=== PATIENT | female | born 1980 | race Caucasian/White ===

== ENCOUNTER → 2017-12-13 | Outpatient (CLI) | payer BC, MEDICARE ==
--- NOTE | 2017-12-14 13:57 | MR ---
MRI CERVICAL SPINE and brain: CLINICAL HISTORY: TECHNIQUE: Multiplanar, multisequence imaging of the cervical spine and brain is performed without co ntrast. COMPARISON: FINDINGS: Cervical spine: Sagittal images of the cervical spine show the craniocervical junction to appear with in normal limits. The cervical and upper thoracic spinal cord is normal in course, caliber, and sign al. Vertebral alignment is anatomic. The vertebral body and intravertebral disk heights are normal. The bone marrow signal intensity is within normal limits. Axial images show there is no significant focal disk disease, spinal canal stenosis, or spinal cord c ompromise at any cervical level. Minimal lateral extension of endplate disc complex C3-4, C4-5, C5-6 encroaching only minimally on the foramina. IMPRESSION: Mild foraminal encroachment. No sizable disc herniation or significant central canal renea nosis. Brain MRI: Corpus callosum, pituitary, cervical medullary junction, cerebellopontine angles are gideon l. There are normal vascular flow voids. No restricted diffusion. Scattered T2 hyperintensities are present in the periventricular, subcortical, juxtacortical and deep white matter. There are approximately 30-40 lesions present. The largest in the right frontal deep w chica matter on axial image 14 measures 5 to 6 mm. 7 mm periventricular lesion is noted on axial image 18 on the right and 7 mm lesion in the periventricular white matter on the left also measures 7 mm. Left frontal hyperintensity measures 8 mm on axial image 21 in the centrum semiovale ovale. No hemorr giovanna or hydrocephalus. The orbits are symmetric. Paranasal sinuses and mastoid air cells are well aerated. IMPRESSION: White matter demyelination changes as described, correlate for possible multiple sclerosi s.
== END | disposition home or self-care (01) ==
LOC: RADMRIMAIN 21:19
PROVIDERS: ATTEND Psychiatry & Neurology Pain Medicine
DX: G37.9 Demyelinating disease of central nervous system, unspecified (principal); M54.2 Cervicalgia
CPT/HCPCS: 70551; 72141

== ENCOUNTER → 2017-12-28 | Outpatient (CLI) | payer MEDICARE, BC ==
[2017-12-30 11:53] LABS: IgG - CSF 2.1 mg/dL (0.0 - 3.4); IgG/Albumin Index (CSF) 0.46 (0.00 - 0.77)
== END | disposition home or self-care (01) ==
LOC: LABWHC1 08:32
PROVIDERS: ATTEND Psychiatry & Neurology Pain Medicine
DX: R90.82 White matter disease, unspecified (principal)
CPT/HCPCS: 36415; 82040; 82042; 82784; 83916

== ENCOUNTER → 2018-11-15 | Outpatient (CLI) | payer MEDICARE ==
--- NOTE | 2018-11-15 14:15 | MM ---
Reason for exam: clinical finding. Last mammogram was performed 1 year and 10 months ago. History: Patient has history of endometrial cancer at age 21. Indicated problem(s): non-bloody discharge in both breasts. Physical Findings: Nurse did not find any significant physical abnormalities on exam. MG 3D Diag Mammo W/Cad JOHN Bilateral CC and MLO view(s) were taken. Prior study comparison: January 13, 2017, mammogram. July 24, 2014, mammogram. The breast tissue is heterogeneously dense. This may lower the sensitivity of mammography. There is no discrete abnormality. These results were verbally communicated with the patient and result sheet given to the patient on 11/15/18. ASSESSMENT: Negative, BI-RAD 1 RECOMMENDATION: Routine screening mammogram of both breasts. Manage on a clinical basis with regard to bilateral nipple discharge x 3 years.
== END | disposition home or self-care (01) ==
LOC: RADMAMWWP 13:27
PROVIDERS: ATTEND Family Medicine
DX: R92.8 Other abnormal and inconclusive findings on diagnostic imaging of breast (principal)
CPT/HCPCS: 77066; G0279; 77062

== ENCOUNTER → 2019-03-19 | Outpatient (CLI) | payer BC, MEDICARE ==
--- NOTE | 2019-03-19 21:23 | MR ---
EXAMINATION TYPE: MR brain wo/w con DATE OF EXAM: 03/19/2019 COMPARISON: 12/13/2017 HISTORY: Weakness, MS follow up, compare to prior 12-13-17 CONTRAST: Performed utilizing 7.5 mL intravenous Gadavist gadolinium contrast. TECHNIQUE: Multiplanar, multisequence imaging of the brain is performed on a 3.0 Marnie magnet. Demye linating disease protocol with additional Sagittal Flair sequence is performed. Study is performed wi thin 24 hours of arrival to the hospital. FINDINGS: T2 White Matter Lesions Present : Yes Approximate Number of Lesions: Multiple scattered Locations Identified : Some white matter changes in the right paola. Scattered subcortical and deep wh ite matter changes are present bilaterally. Size of Largest Lesion(s): 1. 0.5 x 0.5 x 0.9 cm cm. Location: Right subcortical parietal lobe white matter Sequence 601 Image 19 (axial) and Sequence 701 Image 26 (sagittal). 2. 0.6 x 0.4 x 1.0 cm cm. Location: Left centrum semiovale Sequence 601 Image 21 (axial) and Sequen ce 701 Image 13 (sagittal). This has enlarged from comparison. Enhancing Lesion(s) Present: No Change from Prior: Stable Diffusion-weighted imaging is performed. No abnormal hyperintensity is present to suggest an acute i ntracranial infarct or acute ischemic change. Ventricles and sulci are appropriate for the patient age. There are no abnormal extra-axial fluid collections. The ventricular system and cisternal spaces are normal in size and appearance. The brain volume is age appropriate. The craniocervical junction abdulaziz ears within normal limits. The dural venous sinuses appear patent. No abnormal enhancement is present on post contrast images. . The visualized sinuses are clear. Visu alized orbits are unremarkable. IMPRESSION: 1. Stable multiple bilateral deep white matter signal changes can be compatible with multiple sclero sis in the proper clinical setting.
== END | disposition home or self-care (01) ==
LOC: RADMRIMAIN 18:46
PROVIDERS: ATTEND Psychiatry & Neurology Pain Medicine
DX: R90.89 Other abnormal findings on diagnostic imaging of central nervous system (principal)
CPT/HCPCS: 70553; A9585

== ENCOUNTER → 2019-05-29 | Outpatient (CLI) | payer BC, MEDICARE ==
[2019-05-30 00:16] LABS: Total Protein,CSF 38 mg/dL (12-60)
[2019-05-30 02:56] LABS: Appearance,CSF Clear
[2019-05-30 02:57] LABS: CSF Tube Number 4; Nucleated Cells, CSF 1 u/L (0-5); Red Blood Cell,CSF 3 u/L (0-10)
== END | disposition home or self-care (01) ==
LOC: LABWHC1 08:52
PROVIDERS: ATTEND Psychiatry & Neurology Pain Medicine
DX: R51 Headache (principal); R90.82 White matter disease, unspecified
CPT/HCPCS: 36415; 82040; 82042; 82784; 83873; 83916; 84157; 87801; 89050

== ENCOUNTER → 2020-07-04 | Outpatient (CLI) | payer BC, MEDICARE ==
--- NOTE | 2020-07-04 12:34 | MM ---
Reason for exam: additional evaluation requested from prior study. Last mammogram was performed 1 year and 8 months ago. History: Patient has history of endometrial cancer at age 21 and is nulliparous. Physical Findings: Nurse Summary: 0.5cm nodule in the left breast at 7-8 o'clock (nurse db). MG Diagnostic Mammo w CAD JOHN Bilateral CC and MLO view(s) were taken. Prior study comparison: November 15, 2018, bilateral MG 3d diag mammo w/cad JOHN. January 13, 2017, mammogram. The breast tissue is heterogeneously dense. This may lower the sensitivity of mammography. Area of concern posterior right upper outer quadrant and nurse palpated area left 7-8 o'clock position. No significant new findings when compared with previous films. These results were verbally communicated with the patient and result sheet given to the patient on 07/04/20. ASSESSMENT: Incomplete: need additional imaging evaluation, BI-RAD 0 RECOMMENDATION: Ultrasound of both breasts.
--- NOTE | 2020-07-04 12:36 | USB ---
Reason for exam: additional evaluation requested from abnormal screening. History: Patient has history of endometrial cancer at age 21 and is nulliparous. US Breast Limited BILAT Right limited breast ultrasound including focal area of concern, retroareolar and axilla demonstrates no cystic or solid lesion seen. Left limited breast ultrasound including focal area of concern, retroareolar and axilla demonstrates no cystic or solid lesion seen. Scanned right 9-12 o'clock area of pain and scanned left 6-9 o'clock nurse palpated. These results were verbally communicated with the patient and result sheet given to the patient on 07/04/20. ASSESSMENT: Benign, BI-RAD 2 RECOMMENDATION: Routine screening mammogram of both breasts in 1 year. Manage on a clinical basis with regard to right breast pain and any suspicious palpable areas.
== END | disposition home or self-care (01) ==
LOC: RADMAMWWP 11:03
PROVIDERS: ATTEND Family Medicine
DX: N64.4 Mastodynia (principal); R92.8 Other abnormal and inconclusive findings on diagnostic imaging of breast
CPT/HCPCS: 77066

== ENCOUNTER → 2020-07-25 | Outpatient (CLI) | payer BC, MEDICARE ==
--- NOTE | 2020-07-26 00:58 | MR ---
EXAMINATION TYPE: MR brain wo/w con DATE OF EXAM: 07/25/2020 COMPARISON: HISTORY: Possible MS CONTRAST: Standard multiplanar, multisequence MRI departmental protocol utilizing 7.5 mL intravenous Gadavist g adolinium contrast. Ventricles and sulci appear normal. There is no mass effect nor midline shift. There is no sign of in tracranial hemorrhage. Diffusion images show no evidence of an acute infarct. The T2 and FLAIR images show multiple foci of signal in the white matter in both cerebral hemispheres. This is more noticeab le in the parietal lobes. The largest measures 10 mm in the left parietal lobe. Total number of lesio ns is approximately 25. The brainstem is intact. Cerebellum is intact. Sella turcica appears normal. The globes are symmetric . The contrast images show no pathologic enhancement. There is normal enhancement of the venous sinus es. IMPRESSION: Numerous nonenhancing white matter lesions as above would be consistent with demyelinating disease. T hese appear not significantly different than previous exam.
== END | disposition home or self-care (01) ==
LOC: RADMRIMAIN 18:19
PROVIDERS: ATTEND Psychiatry & Neurology Neurology
DX: R90.82 White matter disease, unspecified (principal)
CPT/HCPCS: 70553; A9585

== ENCOUNTER → 2020-10-27 | Outpatient (CLI) | payer BC, MEDICARE ==
[2020-10-29 11:53] LABS: IgG/Albumin Index (CSF) 0.54 (0.00 - 0.77)
== END | disposition home or self-care (01) ==
LOC: LABWHC1 10:57
PROVIDERS: ATTEND Psychiatry & Neurology Pain Medicine
DX: R90.82 White matter disease, unspecified (principal)
CPT/HCPCS: 36415; 82040; 82042; 82784; 83916

== ENCOUNTER → 2020-11-19 | Outpatient (CLI) | payer BC, MEDICARE ==
[2020-11-21 13:52] LABS: Histone Antibody 0.3 UNITS (<1.0)
[2020-11-21 20:31] LABS: Anti-Smith Ab Interp NEGATIVE (NEGATIVE); Cyclic Citrull Pep IgG Unit 0.5 U/mL; Cyclic Citrullinated Pep IgG NEGATIVE (NEGATIVE); DNA Double-Stranded Indetermin (NEGATIVE); JO-1 IgG Antibody <0.2 AI; Scleroderma SC-70 Ab <0.2 AI
== END | disposition home or self-care (01) ==
LOC: LABWHC1 16:04
PROVIDERS: ATTEND Psychiatry & Neurology Pain Medicine
DX: M25.50 Pain in unspecified joint (principal)
CPT/HCPCS: 36415; 83516; 86038; 86200; 86225; 86235

== ENCOUNTER → 2021-02-05 | Outpatient (CLI) | payer MEDICARE ==
--- NOTE | 2021-02-05 13:18 | US ---
EXAMINATION TYPE: US thyroid st tissue head/neck DATE OF EXAM: 02/05/2021 COMPARISON: NONE CLINICAL HISTORY: E04.1 Thyroid nodule. GLAND SIZE: Right Lobe: 5.7x1.9x1.7 cm Overall Parenchyma: homogenous Left Lobe: 5.5x2.2x1.9 cm Overall Parenchyma: homogeneous Isthmus Thickness: 0.3 cm NODULES RIGHT: # of nodules measured on right: 2 1. 1.2 X 0.6 x 0.7 cm, upper mid, cystic or almost completely cystic, anechoic nodule, which is wid er than tall, with smooth margins, echogenic foci a part of a colloid cyst. 2. 0.5 X 0.4 x 0.6 cm, upper mid, spongiform, isoechoic nodule, which is wider than tall, with smoo th margins, without echogenic foci. LEFT: # of nodules measured on left: 3 1. 2.3 X 1.2 x 1.5 cm, mid mid, mixed cystic and solid, hypoechoic nodule, which is wider than tall , with smooth margins, without echogenic foci. 2. 1.0 X 0.7 x 1.1 cm, lower mid, cystic or almost completely cystic, anechoic nodule, which is wi lori than tall, with smooth margins, echogenic foci a part of a colloid nodule. 3. 0.6 X 0.4 x 0.4 cm, mid mid, cystic or almost completely cystic, anechoic nodule, which is , wit h smooth margins, without echogenic foci. ISTHMUS: # of nodules measured in the isthmus: 0 Bilateral neck scanned, no evidence of lymphadenopathy. Findings consistent with multinodular goiter. Dominant 2.3 cm left thyroid nodule with slightly hypoe choic solid component. IMPRESSION: TR 3 lesion mildly suspicious. Annual ultrasound surveillance advised. 2017 ACR TI-RADS LEVEL: TR-RADS 3 - Mildly Suspicious: Follow if > 1.5 cm, FNA if > 2.5 cm *Highest TI-RADS level nodule reported
[2021-02-05 14:53] LABS: T4, Free (Free Thyroxine) 0.98 ng/dL (0.78-2.19)
== END | disposition home or self-care (01) ==
LOC: RADUSWWP 12:15
PROVIDERS: ATTEND Otolaryngology
DX: E04.2 Nontoxic multinodular goiter (principal)
CPT/HCPCS: 76536; 84439; 84443

== ENCOUNTER 2021-03-12 07:28 | Day surgery (SDC) | payer MEDICARE ==
[2021-03-10 13:33] VITALS: BMI 27.0
[~2021-03-12 07:28] MED LIST: FAMOTIDINE 20 MG/2 ML VIAL IV PRN; LACTATED RINGERS 1,000 ML IV SCH; LIDOCAINE 1% (10MG/ML) FOR IV START INTRADERMA PRN; MELOXICAM 7.5 MG TAB PO PRN; ONDANSETRON 4 MG/2 ML VIAL IVP PRN; Pre Op ABX Message 1 EACH MISC MISCELLANE ONE
[2021-03-12] MEDS ORDERED: KETOROLAC 15 MG/ML 1 ML VIAL ONE (08:18)
[2021-03-12] MEDS ORDERED: fentaNYL (PF) 50 MCG/ML 2 ML AMP ONE (08:18)
[2021-03-12] MEDS ORDERED: LIDOCAINE 1% INJ 10MG/ML (20 ML MDV) ONE (08:18)
[2021-03-12] MEDS ORDERED: HYDROmorphone (PF) 1 MG/ML ONE (08:18)
[2021-03-12] MEDS ORDERED: PROPOFOL 10 MG/ML 20 ML VIAL IV ONE (08:18)
[2021-03-12] MEDS ORDERED: MIDAZOLAM 2 MG/2 ML VIAL ONE (08:18)
[2021-03-12] MEDS ORDERED: SUCCINYLCHOLINE CHLORIDE 100 MG/5 ML SYR IV ONE (08:18)
[2021-03-12] MEDS ORDERED: DEXAMETHASONE SOD PHOSPHATE 10 MG/ML 1 ML VIAL ONE (08:18)
[2021-03-12] MEDS ORDERED: SODIUM CHLORIDE 0.9% 100 ML with ceFAZolin 2,000 MG IV ONE ×2 (08:22)
[2021-03-12] MEDS ORDERED: LIDOCAINE 1%-EPI 1:100,000 20 ML VIAL SQ ONE ×2 (08:41)
[2021-03-12] MEDS ORDERED: OXYMETAZOLINE 0.05% NASL SPRAY 1 SPRAY BOTTLE MISCELLANE ONE (08:41)
[2021-03-12] MEDS ORDERED: BUPIVACAINE (PF) 0.5% 30 ML VIAL SQ ONE (08:41)
[2021-03-12] MEDS ORDERED: BACITRACIN ZINC 500 UNIT/GM OINT 28.4 GM TUBE TOPICAL ONE (08:50)
[2021-03-12] MEDS ORDERED: LACTATED RINGERS 1,000 ML IV ONE (09:32)
[2021-03-12 09:44] VITALS: TEMP 97
[2021-03-12] MEDS: HYDROmorphone 0.5 MG/0.5 ML SYRINGE IVP PRN ×2 (09:52→09:58)
--- NOTE | 2021-03-12 09:57 | P.OP ---
Date of Procedure: 03/12/21 Preoperative Diagnosis: Deviated nasal septum Bilateral hypertrophy of the inferior nasal turbinates with obstruction Adenoid hypertrophy with obstruction Postoperative Diagnosis: Same Procedure(s) Performed: Septoplasty Bilateral submucosal resection of the inferior nasal turbinates with outfracturing compression Adenoidectomy by electrofulguration Anesthesia: ROCK Surgeon: Leonel Grimes Estimated Blood Loss (ml): 5 Pathology: other (Septum) Condition: stable Disposition: PACU Indications for Procedure: Patient has persistent nasal obstruction and is a chronic mouth breather for many years. Has tried Flonase nasal spray and other forms of treatment with no improvement. She was found have a severe deviated nasal septum and large obstructive inferior turbinates and endoscopy did reveal large obstructive adenoids. After long discussion on a trial of multiple nasal sprays and medications she wished to proceed forward with this septoplasty, turbinate surgery and adenoidectomy. All risks, benefits, and alternative therapies were discussed in detail. Consent was obtained and all questions were answered. Operative Findings: Patient had massive adenoids with a severe deviated nasal septum to the left anteriorly into the right posteriorly. Inferior turbinates were massively enlarged and edematous. Description of Procedure: This patient was taken to the operative room and placed in the supine position. A general inhalation anesthetic was administered to the patient by the department of anesthesia with a functioning IV line in place. The patient was monitored throughout the entire case by the department of anesthesia. The eyes were taped shut for protection. The patient was placed in a slight reverse Trendelenburg position. The patient had previously utilize Afrin nasal spray preoperatively. The nose was evaluated and the septum lateral nasal wall and inferior turbinates were injected with lidocaine 1% with epinephrine 1 100,000 bilaterally. Approximately 10 minutes were allowed wait for full vasoconstrictive effects to take place. At this point a caudal incision was made over the caudal portion of the left septum down to the mucoperichondrium. A mucoperichondrial flap was elevated on the left side and dissection was carried with use of tunnels posteriorly. We then made a crossover incision through the cartilage to the contralateral side and for the mucoperichondrial flap development was performed to the extent of visualization on the contralateral side. After the cartilage was freed with use of several crosshatching incisions and removal of some redundant strips of s eptal cartilage, the septum was straightened and placed back in the midline. The septum was sutured fixated to the vomerian groove. Excellent straightening occurred and the septum was visibly straight. Incision was closed with a 40 rapid Vicryl. We utilized a running nonlocking fashion for closure of the incision. A quilting stitch was used to reapproximate the septal flaps with use of a 40 rapid Vicryl. Intranasal splints were inserted and fixated at the end of the case. We utilized Calvin nasal splints. They will be removed and the patient returns to the office. Attention was then paid to the inferior turbinates. The bilateral inferior turbinates were hypertrophic and obstructive. We entered the anterior portion of the inferior turbinates with use of a microdebrider. We remove bone and submucosal elements with use of a microdebrider bilaterally. The inferior turbinates underwent a submucosal resection with removal of submucosal tissue and bone. We obtained a much better and normal in size for breathing. The inferior turbinates were then outfractured and compressed with a [employer] nasal elevator. Excellent airway was obtained and was symmetric bilaterally. No bleeding was encountered. A McIvor mouth gag was placed into the patient's mouth with care to avoid any trauma to the lips teeth gums and tongue. The patient's dental care was extremely poor and she exhibited remnant teeth with a tremendous amount of periodontal disease. The nasopharynx was visualized and a red rubber catheter was placed into the nose and out the mouth and used to retract the soft palate. With use of indirect mirror examination and the Coblation hand wand, the adenoid tissue was removed in that fashion again utilizing a suction cautery. The adenoid tissues were removed and fulgurated. The patient tolerated this procedure well. The nasopharynx shows no signs of any bleeding. McIvor mouth gag and the red rubber catheter were removed. The stomach was suctioned and the patient was taken to postanesthesia recovery in excellent condition having tolerated this procedure well. The patient will follow up in the office in one week as scheduled.
[2021-03-12 10:37] VITALS: RESP 20
[2021-03-12] MEDS ORDERED: oxyCODONE-APAP 5-325MG 1 EACH TAB ONE (10:42)
[2021-03-12] MEDS ORDERED: oxyCODONE-APAP 5-325MG 1 EACH TAB PO ONE (10:50)
[2021-03-12] MEDS ORDERED: ONDANSETRON 4 MG/2 ML VIAL ONE (10:56)
[2021-03-12] MEDS ORDERED: ONDANSETRON 4 MG/2 ML VIAL IM ONE (11:00)
[2021-03-12 11:20] VITALS: BP 145/80; PULSE 60
== END 2021-03-12 13:00 | disposition home or self-care (01) ==
LOC: OR 07:28
PROVIDERS: ATTEND Otolaryngology
DX: J34.2 Deviated nasal septum (principal); J35.2 Hypertrophy of adenoids
CPT/HCPCS: 30520; 42831; 88300; J2250; J1100; J2405; J0690; J2001; J3010; J1170 ×2; J1885; J0330; J2704

== ENCOUNTER 2021-03-13 02:17 | Emergency (ER) | payer MEDICARE ==
[2021-03-13 02:30] VITALS: TEMP 99.7
[2021-03-13] MEDS ORDERED: TRANEXAMIC ACID 1,000 MG in SODIUM CHLORIDE 0.9% 100 ML IVPB ONE (02:41)
[2021-03-13] MEDS ORDERED: LABETALOL 5 MG/ML VIAL MDV IVP STA ×2 (02:41→04:17)
[2021-03-13] MEDS ORDERED: HYDROmorphone 1 MG/ML 1 ML SYRINGE IVP STA ×2 (02:41→04:17)
[2021-03-13] MEDS ORDERED: ONDANSETRON 4 MG/2 ML VIAL IVP STA (02:41)
[2021-03-13 03:14] LABS: Basophils % (A) 0 %; Eosinophils # (A) 0.2 k/uL (0-0.7); Eosinophils % (A) 1 %; HCT 41.4 % (34.0-46.0); HGB 14.4 gm/dL (11.4-16.0); Lymphocytes # (A) 1.9 k/uL (1.0-4.8); Lymphocytes % (A) 9 %; MCH 32.5 pg (25.0-35.0); MCHC 34.8 g/dL (31.0-37.0); MCV 93.6 fL (80.0-100.0); Mean Platelet Volume 7.8; Monocytes # (A) 0.7 k/uL (0-1.0); Monocytes % (A) 3 %; Neutrophils # (A) 18.5 k/uL (1.3-7.7); Neutrophils % (A) 87 %; Platelet Count 319 k/uL (150-450); RBC 4.42 m/uL (3.80-5.40); RDW 12.7 % (11.5-15.5); WBC 21.4 k/uL (3.8-10.6)
[2021-03-13 03:19] LABS: African American GFR (CKD) >90 (>60 ml/min/1.73 sqM); Anion Gap 8 mmol/L; Blood Urea Nitrogen 6 mg/dL (7-17); Calcium 9.8 mg/dL (8.4-10.2); Carbon Dioxide 22 mmol/L (22-30); Chloride 103 mmol/L (98-107); Glucose 139 mg/dL (74-99); Non-African American GFR(CKD) >90 (>60 ml/min/1.73 sqM); Potassium 3.9 mmol/L (3.5-5.1); Sodium 133 mmol/L (137-145)
--- NOTE | 2021-03-13 05:32 | ED ---
Headache HPI - General Chief Complaint: Headache Stated Complaint: Nosebleed,headache Time Seen by Provider: 03/13/21 02:25 Mode of arrival: EMS Limitations: no limitations - Related Data Home Medications Medication Instructions Recorded Confirmed Omeprazole Magnesium [PriLOSEC] 20 mg PO BID 03/10/21 03/12/21 Propranolol HCl 60 mg PO QAM 03/10/21 03/12/21 QUEtiapine [SEROquel] 100 mg PO HS 03/10/21 03/12/21 amLODIPine [Norvasc] 5 mg PO QAM 03/10/21 03/12/21 carisoprodoL [Soma] 350 mg PO BID 03/10/21 03/12/21 levETIRAcetam [Keppra] 1,000 mg PO QAM 03/10/21 03/12/21 levETIRAcetam [Keppra] 2,000 mg PO HS 03/10/21 03/12/21 Previous Rx's Medication Instructions Recorded Amoxicillin/Potassium Clav 1 each PO Q12HR #20 tab 03/12/21 [Augmentin 875-125 Tablet] Dexamethasone 6 mg PO DIRECTED #2 tablet 03/12/21 Meloxicam [Mobic] 15 mg PO DAILY #10 tab 03/12/21 oxyCODONE-APAP 5-325MG [Percocet 1 - 2 each PO Q6HR PRN #24 tab 03/12/21 5-325 mg] Allergies Allergy/AdvReac Type Severity Reaction Status Date / Time No Known Allergies Allergy Verified 03/13/21 02:30 Review of Systems ROS Statement: Those systems with pertinent positive or pertinent negative responses have been documented in the HPI. ROS Other: All systems not noted in ROS Statement are negative. Past Medical History Past Medical History: GERD/Reflux, Hypertension, Seizure Disorder Additional Past Medical History / Comment(s): Migraines. Last seizure almost 3 yrs ago. History of Any Multi-Drug Resistant Organisms: None Reported Past Surgical History: Hysterectomy, Tubal Ligation Additional Past Surgical History / Comment(s): Cyst removed from ovary. Past Anesthesia/Blood Transfusion Reactions: No Reported Reaction Past Psychological History: No Psychological Hx Reported Smoking Status: Current every day smoker Past Alcohol Use History: None Reported Past Drug Use History: Marijuana - Past Family History Mother Family Medical History: CVA/TIA General Exam Limitations: no limitations Course Vital Signs 03/13/21 03/13/21 03/13/21 02:24 03:30 04:59 Temperature 99.7 F H Pulse Rate 87 82 77 Respiratory 16 18 16 Rate Blood Pressure 162/84 163/93 145/70 O2 Sat by Pulse 97 97 97 Oximetry Medical Decision Making - Lab Data Result diagrams: 03/13/21 02:50 03/13/21 02:50 Lab Results 03/13/21 03/13/21 Range/Units 02:50 02:50 WBC 21.4 H (3.8-10.6) k/uL RBC 4.42 (3.80-5.40) m/uL Hgb 14.4 (11.4-16.0) gm/dL Hct 41.4 (34.0-46.0) % MCV 93.6 (80.0-100.0) fL MCH 32.5 (25.0-35.0) pg MCHC 34.8 (31.0-37.0) g/dL RDW 12.7 (11.5-15.5) % Plt Count 319 (150-450) k/uL MPV 7.8 Neutrophils % 87 % Lymphocytes % 9 % Monocytes % 3 % Eosinophils % 1 % Basophils % 0 % Neutrophils # 18.5 H (1.3-7.7) k/uL Lymphocytes # 1.9 (1.0-4.8) k/uL Monocytes # 0.7 (0-1.0) k/uL Eosinophils # 0.2 (0-0.7) k/uL Basophils # 0.0 (0-0.2) k/uL Sodium 133 L (137-145) mmol/L Potassium 3.9 (3.5-5.1) mmol/L Chloride 103 (98-107) mmol/L Carbon Dioxide 22 (22-30) mmol/L Anion Gap 8 mmol/L BUN 6 L (7-17) mg/dL Creatinine 0.67 (0.52-1.04) mg/dL Est GFR (CKD-EPI)AfAm >90 (>60 ml/min/1.73 sqM) Est GFR (CKD-EPI)NonAf >90 (>60 ml/min/1.73 sqM) Glucose 139 H (74-99) mg/dL Calcium 9.8 (8.4-10.2) mg/dL Disposition Clinical Impression: Headache Disposition: HOME SELF-CARE Condition: Good Instructions (If sedation given, give patient instructions): Acute Headache (ED) Is patient prescribed a controlled substance at d/c from ED?: No Referrals: Diana Barker DO [Primary Care Provider] - 1-2 days
[2021-03-13 05:44] VITALS: BP 150/84; PULSE 53; RESP 18
== END 2021-03-13 05:44 | disposition home or self-care (01) ==
LOC: EC 02:17
DX: R51.9 Headache, unspecified (principal); I10 Essential (primary) hypertension; K21.9 Gastro-esophageal reflux disease without esophagitis; Z90.710 Acquired absence of both cervix and uterus; Z98.51 Tubal ligation status; F17.200 Nicotine dependence, unspecified, uncomplicated; F12.90 Cannabis use, unspecified, uncomplicated
CPT/HCPCS: 99284; 96365; 96375 ×3; 96376 ×2; 36415; 80048; 85025; J2405; J1170

== ENCOUNTER → 2021-08-17 | Outpatient (CLI) | payer MEDICARE, OTHER ==
--- NOTE | 2021-08-18 15:09 | MM ---
Reason for exam: screening (asymptomatic). Last mammogram was performed 1 year and 1 month ago. History: Patient has history of endometrial cancer at age 21 and is nulliparous. Physical Findings: A clinical breast exam by your physician is recommended on an annual basis and results should be correlated with mammographic findings. MG 3D Screening Mammo W/Cad Bilateral CC and MLO view(s) were taken. Prior study comparison: July 04, 2020, bilateral MG diagnostic mammo w CAD JOHN. November 15, 2018, bilateral MG 3d diag mammo w/cad JOHN. The breast tissue is heterogeneously dense. This may lower the sensitivity of mammography. There is no discrete abnormality. ASSESSMENT: Negative, BI-RAD 1 RECOMMENDATION: Routine screening mammogram of both breasts in 1 year.
== END | disposition home or self-care (01) ==
LOC: RADMAMWWP 16:43
PROVIDERS: ATTEND Family Medicine
DX: Z12.31 Encounter for screening mammogram for malignant neoplasm of breast (principal); Z85.42 Personal history of malignant neoplasm of other parts of uterus
CPT/HCPCS: 77063; 77067

== ENCOUNTER → 2021-09-03 | Outpatient (CLI) | payer MEDICARE, OTHER ==
--- NOTE | 2021-09-04 07:19 | US ---
EXAMINATION TYPE: US thyroid st tissue head/neck DATE OF EXAM: 09/03/2021 COMPARISON: 02/05/21 CLINICAL HISTORY: E04.1 THYROID NODULE. Thyroid nodule GLAND SIZE: Right Lobe: 5.7 x 1.9 x 1.5 cm Overall Parenchyma: homogenous Left Lobe: 5.8 x 2.2 x 2.0 cm Overall Parenchyma: homogeneous Isthmus Thickness: 0.30 cm NODULES RIGHT: # of nodules measured on right: 1 1. 1.4 X 0.7 x 0.9 cm, upper lateral, cystic or almost completely cystic, anechoic nodule, which is wider than tall, with smooth margins, with echogenic foci. Prior size: 1.2 x 0.6 x 0.7 cm LEFT: # of nodules measured on left: 2 1. 2.4 X 1.1 x 1.3 cm, mid mid, mixed cystic and solid, very hypoechoic nodule, which is wider than tall, with smooth margins, with echogenic foci. Prior size: 2.3 x 1.2 x 1.5 cm 2. 1.2 X 0.6 x 1.2 cm, lower mid, cystic or almost completely cystic, nodule, which is wider than tall, with smooth margins, with echogenic foci. Prior size: 1.0 x 0.7 x 1.1 cm ISTHMUS: # of nodules measured in the isthmus: 0 Bilateral neck scanned, no evidence of lymphadenopathy. IMPRESSION: Stable nonspecific nodularity.
== END | disposition home or self-care (01) ==
LOC: RADUSWWP 16:58
PROVIDERS: ATTEND Otolaryngology
DX: E04.2 Nontoxic multinodular goiter (principal)
CPT/HCPCS: 76536

== ENCOUNTER → 2022-07-21 | Outpatient (CLI) | payer BC, OTHER ==
--- NOTE | 2022-07-22 08:02 | US ---
EXAMINATION TYPE: US thyroid st tissue head/neck DATE OF EXAM: 07/21/2022 COMPARISON: 09/03/21 CLINICAL HISTORY: E04.1 THYROID NODULE. Hx of thyroid nodules. Not on thyroid medication GLAND SIZE: Right Lobe: 5.9 x 2.0 x 1.8 cm Overall Parenchyma: homogenous Left Lobe: 5.8 x 2.1 x 1.5 cm Overall Parenchyma: homogeneous Isthmus Thickness: 0.47 cm NODULES RIGHT: # of nodules measured on right: 2 1. 1.3 X 1.2 x 0.8 cm, upper lateral, Prior size: 1.4 x 0.9 x 0.7 cm TIRADS Score: 0 TIRADS Category 1: Benign Composition: Cystic or almost completely cystic (0 points). Recommendation: No FNA 2. 0.6 X 0.6 x 0.4 cm, mid mid, TIRADS Score: 4 TIRADS Category 4: Moderately Suspicious Composition: Solid or almost completely solid (2 points). Echogenicity: Hypoechoic (2 points). Shape: Wider than tall (0 points). Margin: Smooth (0 points). Echogenic foci: None or large comet-tail artifacts (0 points) Recommendation: If >1.5cm: FNA; If >1cm: Follow up at 1,2, 3,5 years LEFT: # of nodules measured on left: 2 1. 0.8 X 0.7 x 0.5 cm, mid mid, Prior size: 2.4 x 1.3 x 1.1 cm TIRADS Score: 0 TIRADS Category 1: Benign Composition: Cystic or almost completely cystic (0 points). Recommendation: No FNA 2. 1.5 X 1.2 x 0.8 cm, lower mid, Prior size: 1.2 x 1.2 x 0.6 cm TIRADS Score: 5 TIRADS Category 4: Moderately Suspicious Composition: Solid or almost completely solid (2 points). Echogenicity: Hypoechoic (2 points). Shape: Wider than tall (0 points). Margin: Smooth (0 points). Echogenic foci: Macrocalcifications (1 point) Recommendation: If >1.5cm: FNA; If >1cm: Follow up at 1,2, 3,5 years ISTHMUS: # of nodules measured in the isthmus: 0 Bilateral neck scanned, no evidence of lymphadenopathy. IMPRESSION: Bilateral nodules as described above.
== END | disposition home or self-care (01) ==
LOC: RADUSWWP 16:41
PROVIDERS: ATTEND Otolaryngology
DX: E04.2 Nontoxic multinodular goiter (principal)
CPT/HCPCS: 76536

== ENCOUNTER → 2022-09-27 | Outpatient (CLI) | payer BC, OTHER ==
--- NOTE | 2022-09-28 08:00 | MM ---
Reason for Exam: Screening (asymptomatic). Last mammogram was performed 1 year(s) and 2 month(s) ago. Patient History: Menarche at age 12. Patient has no children. Left ovary removed at age 30. Right ovary removed at age 30. Hysterectomy at age 30. Postmenopausal. Endometrial cancer, age 21. Paternal aunt had ovarian cancer under age 50. Risk Values: Siena 5 year model risk: 0.7%. NCI Lifetime model risk: 9.9%. Prior Study Comparison: 11/15/2018 Bilateral Diagnostic Mammogram, [facility]. 07/04/2020 Bilateral Diagnostic Mammogram, [facility]. 08/17/2021 Bilateral Screening Mammogram, [facility]. Tissue Density: The breast tissue is heterogeneously dense. This may lower the sensitivity of mammography. Findings: Analyzed By CAD. There is no suspicious group of microcalcifications or new suspicious mass in either breast. Overall Assessment: Negative, BI-RAD 1 Management: Screening Mammogram of both breasts in 1 year. . Patient should continue monthly self-breast exams. A clinical breast exam by your physician is recommended on an annual basis. This exam should not preclude additional follow-up of suspicious palpable abnormalities. Note on Siena scores and lifetime risk: 1. A Siena score greater than 3% is considered moderate risk. If this is the case, consider specialist referral to assess eligibility for a risk reducing agent. 2. If overall lifetime risk for the development of breast cancer is 20% or higher, the patient may qualify for future screening with alternating mammogram and breast MRI. Electronically signed and approved by: Boyd Ring M.D. Radiologis
== END | disposition home or self-care (01) ==
LOC: RADMAMWWP 12:34
PROVIDERS: ATTEND Family Medicine
DX: Z12.31 Encounter for screening mammogram for malignant neoplasm of breast (principal); Z78.0 Asymptomatic menopausal state; Z80.3 Family history of malignant neoplasm of breast
CPT/HCPCS: 77063; 77067

== ENCOUNTER → 2023-07-19 | Outpatient (CLI) | payer OTHER ==
--- NOTE | 2023-07-19 19:11 | US ---
EXAMINATION TYPE: US thyroid st tissue head/neck DATE OF EXAM: 07/19/2023 COMPARISON: NONE CLINICAL INDICATION: Female, 42 years old with history of E04.1 NONTOIC SINGLE THYROID NODULE; f/u on nodules GLAND SIZE: Right Lobe: 5.4 x 1.5 x 2.0 cm Overall Parenchyma: heterogeneous Left Lobe: 5.5 x 1.7 x 1.7 cm Overall Parenchyma: heterogeneous Isthmus Thickness: 0.4 cm NODULES RIGHT: # of nodules measured on right: 2 1. 1.5 X 0.8 x 0.8 cm, mid, cystic or almost completely cystic, anechoic nodule, which is wider ellen n tall, with smooth margins, with echogenic foci. Prior size: 1.3 x 0.8 x 1.2 cm 2. 0.7 X 0.5 x 0.7 cm, upper, mixed cystic and solid, hypoechoic nodule, which is wider than tall, with smooth margins, without echogenic foci. TR 3 Prior size: 0.6 x 0.4 x 0.6 cm LEFT: # of nodules measured on left: 2 1. 1.1 X 1.3 x 0.7 cm, lower , cystic or almost completely cystic, anechoic nodule, which is wider than tall, with smooth margins, with echogenic foci. Prior size: 1.5 x 0.8 x 1.2 cm 2. 0.5 X 0.5 x 0.5 cm, mid , mixed cystic and solid, anechoic nodule, which is taller than wide, wi th smooth margins, with echogenic foci. Prior size: 0.8 x 0.7 x 0.5 cm ISTHMUS: # of nodules measured in the isthmus: 0 Bilateral neck scanned, no evidence of lymphadenopathy. IMPRESSION: Mildly suspicious nodule right lobe thyroid. Consider follow-up 2017 ACR TI-RADS LEVEL: TR-RADS 3 - Mildly Suspicious: Follow if > 1.5 cm, FNA if > 2.5 cm *Highest TI-RADS level nodule reported
== END | disposition home or self-care (01) ==
LOC: RADUSWWP 15:30
PROVIDERS: ATTEND Family Medicine
DX: E04.1 Nontoxic single thyroid nodule (principal)
CPT/HCPCS: 76536

== ENCOUNTER → 2023-12-29 | Outpatient (CLI) | payer OTHER ==
--- NOTE | 2024-01-01 11:57 | MM ---
Reason for Exam: Screening (asymptomatic). Last mammogram was performed 1 year(s) and 3 month(s) ago. Patient History: Menarche at age 12. Patient has no children. Left ovary removed at age 30. Right ovary removed at age 30. Hysterectomy at age 30. Postmenopausal. Endometrial cancer, age 21. Paternal aunt had ovarian cancer under age 50. Risk Values: Siena 5 year model risk: 0.8%. NCI Lifetime model risk: 9.7%. Prior Study Comparison: 07/04/2020 Bilateral Diagnostic Mammogram, [facility]. 08/17/2021 Bilateral Screening Mammogram, [facility]. 09/27/2022 Bilateral MG 3D screening mammo w/cad, [facility]. Tissue Density: There are scattered areas of fibroglandular density. Findings: Analyzed By CAD. Right breast: There is no suspicious group of microcalcifications or new suspicious mass. Left breast: There is no suspicious group of microcalcifications or new suspicious mass. Overall Assessment: Negative, BI-RAD 1 Management: Screening Mammogram of both breasts in [address] [facility] will attempt to contact patient to return for supplemental views and ultrasound if indicated. Patient should continue monthly self-breast exams. A clinical breast exam by your physician is recommended on an annual basis. This exam should not preclude additional follow-up of suspicious palpable abnormalities. Note on Siena scores and lifetime risk: 1. A Siena score greater than 3% is considered moderate risk. If this is the case, consider specialist referral to assess eligibility for a risk reducing agent. 2. If overall lifetime risk for the development of breast cancer is 20% or higher, the patient may qualify for future screening with alternating mammogram and breast MRI. Electronically signed and approved by: Pedro Luis Ramos DO
== END | disposition home or self-care (01) ==
LOC: RADMAMWWP 16:07
PROVIDERS: ATTEND Family Medicine
DX: Z12.31 Encounter for screening mammogram for malignant neoplasm of breast
CPT/HCPCS: 77067

== ENCOUNTER → 2024-06-20 | Outpatient (CLI) | payer OTHER ==
--- NOTE | 2024-06-20 14:06 | US ---
EXAMINATION TYPE: US thyroid st tissue head/neck DATE OF EXAM: 06/20/2024 COMPARISON: Prior thyroid ultrasound July 19, 2023 CLINICAL INDICATION: Female, 43 years old with history of E04.1 NONTOXIC SINGLE THYROID NODULE; follo w up thyroid nodules TECHNIQUE: Grayscale and color Doppler imaging of the thyroid gland. FINDINGS: GLAND SIZE: Right Lobe: 5.6 x 2.1 x 2.0 cm Overall Parenchyma: heterogeneous Left Lobe: 5.4 x 2.1 x 2.2 cm Overall Parenchyma: heterogeneous Isthmus Thickness: 0.3 cm NODULES RIGHT: # of nodules measured on right: 1 1. 0.7 X 0.5 x 0.7 cm, upper , spongiform, hypoechoic nodule, which is wider than tall, with smooth margins, without echogenic foci. TR 2 Prior size: 0.7 x 0.5 x 0.7 cm LEFT: # of nodules measured on left: 2 1. 1.2 X 0.7 x 1.2 cm, lower , cystic or almost completely cystic, anechoic nodule, which is wider than tall, with smooth margins, with echogenic foci. TR3 Prior size: 1.1 x 0.7 x 1.3 cm 2. 0.5 X 0.4 x 0.7 cm, mid , cystic or almost completely cystic, anechoic nodule, which is wider t mg tall, with smooth margins, without echogenic foci. TR 1 Prior size: 0.5 x 0.5 x 0.5 cm ISTHMUS: # of nodules measured in the isthmus: 0 Bilateral neck scanned, no evidence of lymphadenopathy. Persistent heterogeneous multinodular normal-sized thyroid. No significant change from most recent pr ior ultrasound. IMPRESSION: No significant change from most recent prior ultrasound. 2017 ACR TI-RADS LEVEL: TI-RADS 3 - Mildly Suspicious: Follow if > 1.5 cm, FNA if > 2.5 cm *Highest TI-RADS level nodule reported [email or web address] [facility], , 06/20/2024 2:04 PM
== END | disposition home or self-care (01) ==
LOC: RADUSWWP 09:58
PROVIDERS: ATTEND Family Medicine
DX: E04.1 Nontoxic single thyroid nodule (principal)
CPT/HCPCS: 76536